=== PATIENT | female | born 1975 | race Caucasian/White ===

== ENCOUNTER 2016-08-10 13:30 | Emergency (ER) | payer OTHER ==
[2016-08-10 16:00] VITALS: BP 128/91
== END 2016-08-10 16:00 | disposition home or self-care (01) ==
LOC: ED 13:30
DX: L02.01 Cutaneous abscess of face (principal); I10 Essential (primary) hypertension; R51 Headache; E78.00 Pure hypercholesterolemia, unspecified; E66.9 Obesity, unspecified; Z88.8 Allergy status to other drugs, medicaments and biological substances